=== PATIENT | male | born 1985 | race Caucasian/White ===

== ENCOUNTER 2016-06-14 23:10 | Emergency (ER) | payer OTHER ==
--- NOTE | 2016-06-15 00:05 | ERNOTE ---
Medical Problem HPI - General Chief Complaint: Drug Overdose Time Seen by Provider: 06/14/16 23:53 Source: patient, other - caregiver Exam Limitations: no limitations - Immun/Allergies/Home Medications Immunizations: IMMUNIZATION HX Immunizations Up to Date Yes History of Influenza Vaccine Yes Hx Pneumococcal Vaccination No Allergies/Adverse Reactions: Allergies haloperidol [From Haldol] Allergy (Unknown, Verified 04/12/16 04:10) haloperidol lactate [From Haldol] Allergy (Unknown, Verified 04/12/16 04:10) Home Medications: HOME MEDICATIONS Acetaminophen [Tylenol] 650 mg PO Q4H PRN 04/10/16 [Last Taken Unknown] Calcium Carb/Magnesium Hydrox [Antacid 1000-200 mg Tab Chew] 2 each PO BID PRN 04/10/16 [Last Taken Unknown] Cetirizine HCl [Allergy Relief] 10 mg PO DAILY PRN 04/10/16 [Last Taken Unknown] Clonazepam 0.5 mg PO HS 04/10/16 [Last Taken Unknown] Divalproex Sodium 1,250 mg PO BID 04/10/16 [Last Taken Unknown] Ferrous Sulfate 325 mg PO DAILY 04/10/16 [Last Taken Unknown] Gemfibrozil [Lopid] 600 mg PO BID 04/10/16 [Last Taken Unknown] Guanfacine HCl [Guanfacine HCl ER] 1 mg PO BID 04/10/16 [Last Taken Unknown] Levetiracetam [Keppra] 1,000 mg PO BID 04/10/16 [Last Taken Unknown] Levocarnitine [Carnitor] 330 mg PO BID 04/10/16 [Last Taken Unknown] Levocarnitine [l-Carnitine] 250 mg PO BID 04/10/16 [Last Taken Unknown] Levothyroxine Sodium [Levo-T] 100 mcg PO DAILY 04/10/16 [Last Taken Unknown] Lorazepam [Ativan] 0.5 mg PO BID PRN 04/10/16 [Last Taken Unknown] Multivitamin [One Daily Essential] 1 each PO DAILY 04/10/16 [Last Taken Unknown] Phenol/Glycerin [Chloraseptic [place]] 30 ml MM Q2H PRN 04/10/16 [Last Taken Unknown] Polyethylene Glycol 3350 [Miralax] 17 gm PO BID PRN 04/10/16 [Last Taken Unknown ] Quetiapine Fumarate [Seroquel] 100 mg PO BID 04/10/16 [Last Taken Unknown] Sertraline HCl [Zoloft] 100 mg PO DAILY 04/10/16 [Last Taken Unknown] Trazodone HCl 50 mg PO BID 04/10/16 [Last Taken Unknown] - History of Present History Narrative: Patient lives in a nursing home and during medication time accidentally grabbed someone else's medications (see nurses note for medication name and doses). Nurse contacted poison control and no further treatment was advised. Patient has no symptoms, just is tired to to the time of night Date (Duration): 06/15/16 Time (Timing): 22:00 Review of Systems - Review of Systems Constitutional: Absent: recent illness, fever ENT: Absent: sore throat Respiratory: Absent: shortness of breath Cardiology: Absent: chest pain Gastrointestinal/Abdominal: Absent: nausea Neurological: Absent: headache - Patient's Past Medical History Patient History - Medical: Anxiety, Seizures Patient History - Cardiac/Respiratory: No pertinent hx Patient History - Cancer: No Hx of Cancer Patient History - Surgical Procedures: No surgical history Patient History - Other: None - Social History Living Situations: other Psych History: Hx of Anxiety Smoking Status: Never smoker Alcohol Use: none Drug Use: none - Immunizations Immunizations Up to Date: Yes Hx Pneumococcal Vaccination: No History of Influenza Vaccine: Yes Physical Exam - Physical Exam General Appearance: Present: wd/wn, alert, no apparent distress Respiratory: Present: no respiratory distress, normal breath sounds, lungs clear Cardiovascular/Chest: Present: regular rate, rhythm, no murmur Gastrointestinal/Abdominal: Present: nontender, nondistended Neurological Exam: Present: alert, oriented, normal mood/affect Skin Exam: Present: normal color, warm/dry ED Progress - Vital Signs Patient's Vital Signs:: I have reviewed the patient's vital signs. Vital Signs: Vital Signs 06/14/16 23:10 Temperature 36.5 C Pulse Rate 78 Respiratory 16 Rate Blood Pressure 106/86 O2 Sat by Pulse 98 Oximetry - Progress/Reassessment Chief Complaint: Drug Overdose Departure - Departure Clinical Impression: Accidental drug ingestion Qualifiers: Encounter type: initial encounter Qualified Code(s): T50.901A - Poisoning by unspecified drugs, medicaments and biological substances, accidental ( unintentional), initial encounter Disposition: Home self-care Condition: Good Instructions: Accidental Overdose Additional Instructions: with the medication you took, no further treatment is needed
--- OUTSIDE RECORDS SUMMARY | 2016-06-15 00:09 | XMS REPORT | Summary of Care ---
:1985 Author Organization [facility] Team Providers Name Role Phone Physician, No PCP Primary Care Physician Unavailable Encounter 08/14/15 - 08/20/[address] [id number]- [facility] Discharge Disposition: Discharged to Home or Self Care Attending Physician: Jeaneth Bess NP Admitting Physician: Jill KAISER, Alfredo Vital Signs Most recent to oldest (Reference Range): 1 Respiratory Rate (12-18 Br PM) 18 Br PM (08/20/14 6:30 AM) Most recent to oldest (Reference Range): 1 Pulse Rate (60-100 BPM) 108 BPM *HI* (08/20/14 6:30 AM) Most recent to oldest (Reference Range): 1 Blood Pressure (90-140/65-90 mmHg) 133/89mmHg (08/20/14 6:30 AM) Most recent to oldest (Reference Range): 1 Temperature Celsius (36.1-38 Degrees C) 36.2 Degrees C (08/20/14 6:30 AM) Most recent to oldest (Reference Range): 1 Height 175.26 cm (08/14/14 1:02 AM) Most recent to oldest (Reference Range): 1 Weight 91.334 kg (08/14/14 2:37 AM) Most recent to oldest (Reference Range): 1 Body Mass Index 30 kg/m2 (08/14/14 1:02 AM) Problem List Condition Effective Dates Status Health Status Informant Epilepsy(Confirmed) Active patient Intermittent explosive Active patient disorder(Confirmed) Intellectual disability(Confirmed) Active patient Obesity(Confirmed) Active patient Psychotic disorder(Confirmed) Active patient Allergies, Adverse Reactions, Alerts No Known Allergies Medications ALPRAZolam 0.5 mg oral tablet Take 1 Tab, PO, BID, Each, 0 Refill(s) Start Date: 08/20/14 Status: Orderedbenztropine 1 mg oral tablet Take 1 Tab, PO, Bedtime, Each, 0 Refill(s) Start Date: 08/20/14 Status: OrderedDepakote ER 250 mg oral tablet, extended release 3tabs, PO, Daily, Each, 0 Refill(s) Start Date: 08/14/14 Status: OrderedDepakote ER 250 mg oral tablet, extended release 3 tabs, PO, Bedtime, Each, 0 Refill(s) Start Date: 08/14/14 Status: Orderedgemfibrozil 600 mg oral tablet Take 1 Tab, PO, Daily, Each, 0 Refill(s) Start Date: 08/14/14 Status: OrderedLevETIRAcetam 2,000 mg, PO, BID, Each, 0 Refill(s) Start Date: 08/14/14 Status: OrderedMilk of Magnesia 30 mL, PO, Bedtime, PRN Constipation, Each, 0 Refill(s) Start Date: 08/14/14 Status: Orderedmultivitamin 1 Tab, PO, Daily, Tab, 0 Refill(s) Start Date: 08/14/14 Status: OrderedMylanta 15 mL, PO, Q4h, PRN Indigestion/Heartburn, Each, 0 Refill(s) Start Date: 08/14/14 Status: Orderedpaliperidone 3 mg oral tablet, extended release Take 1 Tab, PO, Daily, # 30 Each, 1 Refill(s), given to patient Start Date: 08/20/14 Status: Orderedpolyethylene glycol 3350 oral powder for reconstitution PO, Daily, Each, 0 Refill(s) Start Date: 08/20/14 Status: OrderedQUEtiapine 400 mg oral tablet Take 1 Tab, PO, Bedtime, # 30 Tab, 1 Refill(s), given to patient Start Date: 08/20/14 Status: OrderedTopiramate Tab 150 mg, PO, BID, Each, 0 Refill(s) Start Date: 08/14/14 Status: OrderedTylenol 325 mg oral tablet Take 2 Tab, PO, Q4h, PRN as needed for pain, Each, 0 Refill(s) Start Date: 08/14/14 Status: Ordered Results Chemistry Most recent to oldest (Reference Range): 1 Sodium Level (135-145 mEq/L) 142 mEq/L (08/16/14 5:57 AM) Potassium Level (3.5-5.0 mEq/L) 3.9 mEq/L (08/16/14 5:57 AM) Chloride Level (100-108 mEq/L) 110 mEq/L *HI* (08/16/14 5:57 AM) Carbon Dioxide Level (24-32 mEq/L) 28 mEq/L (08/16/14 5:57 AM) Anion Gap (7.00-16.00 mEq/L) 4.00 mEq/L *LOW* (08/16/14 5:57 AM) Valproic Acid (Depakene) Level (50.0-100.0 mcg/mL) 59.1 mcg/mL (08/16/14 5:57 AM) Urinalysis. Most recent to oldest (Reference Range): 1 Color Urine (Yellow) Yellow (08/16/14 10:24 AM) Appearance Urine (Clear) Clear (08/16/14 10:24 AM) Specific Gilbert Urine (1.005-1.035) 1.010 (08/16/14 10:24 AM) pH Urine (5.0-7.5) 7.0 (08/16/14 10:24 AM) Glucose Urine (Negative) Negative (08/16/14 10:24 AM) Ketones Urine (Negative) Negative (08/16/14 10:24 AM) Bilirubin Urine (Negative) Negative (08/16/14 10:24 AM) Urobilinogen Urine (0.1-1.0 EU/dL) 0.2 EU/dL (08/16/14 10:24 AM) Leukocyte Esterase Urine (Negative) Negative (08/16/14 10:24 AM) Nitrite Urine (Negative) Negative (08/16/14 10:24 AM) Protein Urine (Negative) Negative (08/16/14 10:24 AM) WBC Urine (0-3 /hpf) 0 /hpf (08/16/14 10:24 AM) RBC Urine (0-5 /hpf) 0 /hpf (08/16/14 10:24 AM) Hemoglobin Urine (Negative) Negative (08/16/14 10:24 AM) Immunizations No data available for this section Procedures No data available for this section Social History No data available for this section Assessment and Plan No data available for this section
[2016-06-15 00:11] VITALS: BP 124/76
== END 2016-06-15 00:05 | disposition home or self-care (01) ==
LOC: ER 23:10
DX: T50.901A Poisoning by unspecified drugs, medicaments and biological substances, accidental (unintentional), initial encounter (principal)